=== PATIENT | female | born 1940 | race Caucasian/White ===

== ENCOUNTER 2020-06-29 09:44 | Emergency (ER) | payer OTHER ==
[~2020-06-29] VITALS: Ht 162.6 cm; Wt 55.8 kg
[2020-06-29] MEDS ORDERED: HYDROCODONE/APAP 5MG-325MG TAB PO NR (10:15)
--- NOTE | 2020-06-29 10:44 | Emergency Department Note ---
History of Present Illnes History of Present Illness Chief Complaint: Extremity Trauma/Pain History of Present Illness This is a 79 year old female PAIN, SWELLING TO LEFT SHOULDER THAT RADIATES TO ELBOW. POSITIVE PULSE, CAP REFIL <3SEC. 2 HRS AGO TRIPPED AND FELL OVER A STOOL, LANDING ON THE LEFT SHOULDER. SHE DID HIT HEAD BUT NO LOC Historian: Patient Arrival Mode: Car Additional Treatment PUBLIC HEALTH ENGINEER: NONE Supervisor Front Required: No Onset (how long ago): hour(s) Location: LEFT SHOULDER/HUMERUS Quality: PAIN Radiation: Reports non-radiation Severity: moderate Onset quality: sudden Timing of current episode: constant Progression: unchanged Chronicity: new Context: Reports trauma/injury Relieving factors: none Exacerbating factors: none Associated symptoms: Reports denies other symptoms Past Medical/Family History Physician Review I have reviewed the patient's past medical and family history. Any updates have been documented here. Past Medical History Recent Fever: No Clinical Suspicion of Infectio: No New/Unexplained Change in Ment: No Past Medical History: Hypertension, GERD Other Medical History: ANEURYSM OSTEOPOROSIS ESOPHAGEAL STRICTURE Past Surgical History: Cholecysctectomy, Appendectomy, Hysterectomy Other Surgery: PARTIAL HYSTERECTOMY RIGHT SHOULDER SURGERY HEMMROHIDECTOMY BILATERAL FEET Social History Smoking Cessation: Never Smoker Counseling Performed: No Alcohol Use: None Any Illegal Drug Use: No TB Exposure/Symptoms: No Physically hurt or threatened: No Family History Family history of heart diseas: No Other Any Pre-Existing Lines (PICC,: No Is patient up to date on immun: Yes Review of Systems Review of Systems Constitutional: Reports no symptoms EENTM: Reports no symptoms Cardiovascular: Reports no symptoms Respiratory: Reports no symptoms Gastrointestinal: Reports no symptoms Genitourinary: Reports no symptoms Musculoskeletal: Reports as per HPI Integumentary: Reports no symptoms Neurological: Reports no symptoms Psychological: Reports no symptoms Endocrine: Reports no symptoms Hematological/Lymphatic: Reports no symptoms Physical Exam Related Data Allergies: Coded Allergies: codeine (Verified Allergy, Intermediate, ITCHES, RASH, 06/29/20) Triage Vital Signs Vital Signs Date Time Temp Pulse Resp B/P (MAP) Pulse Ox O2 Delivery O2 Flow Rate FiO2 06/29/20 09:53 98.2 86 18 137/82 100 Room Air Vital signs reviewed: Yes Physical Exam CONSTITUTIONAL Constitutional: Present well-developed, Present well-nourished HENT HENT: Present normocephalic, Present atraumatic, Present oropharynx clear/moist, Present nose normal HENT L/R: Present left ext ear normal, Present right ext ear normal EYES Eyes: Reports PERRL, Reports conjunctivae normal NECK Neck: Present ROM normal, Present other (NO MIDLINE TTP, FROM WITHOUT PAIN) PULMONARY Pulmonary: Present effort normal, Present breath sounds normal CARDIOVASCULAR Cardiovascular: Present regular rhythm, Present heart sounds normal, Present capillary refill normal, Present normal rate GASTROINTESTINAL Abdominal: Present soft, Present nontender, Present bowel sounds normal GENITOURINARY Genitourinary: Present exam deferred SKIN Skin: Present warm, Present dry MUSCULOSKELETAL Musculoskeletal: Present tenderness (FROM MID-SHAFT LEFT HUMERUS TO SHOULDER WITH DECR ROM AT SHOULDER) NEUROLOGICAL Neurological: Present alert, Present oriented x 3, Present no gross motor or sensory deficits PSYCHOLOGICAL Psychological: Present mood/affect normal, Present judgement normal Results Imaging Imaging results reviewed: Yes Impressions EXAMINATION: Head and cervical spine CT without contrast. HISTORY: Status post fall, trauma, pain COMPARISON: None. TECHNIQUE: Multidetector axial images were obtained without contrast from the foramen magnum to the vertex and through the cervical spine. Dose modulation, iterative reconstruction, and/or weight based adjustment of the mA/kV was utilized to reduce the radiation dose to as low as reasonably achievable. HEAD CT FINDINGS: Skull/scalp: No lytic or blastic lesions. No fractures. Parenchyma: Normal. No mass, hemorrhage or CT evidence of acute vascular insult. Brain volume: Normal for age. Ventricles: No hydrocephalus or displacement. Arteries: No density suggestive of thrombus. Dural sinuses: No abnormal density. Extra-axial spaces: No abnormal density. Foramen magnum: No mass, Chiari malformation, or basilar invagination. Sella: No obvious mass. Paranasal/mastoid sinuses: Imaged portions unremarkable. CERVICAL SPINE CT FINDINGS: Alignment:Normal alignment and lordosis. Soft tissues: Approximately 6 mm radiopaque foreign body within the cervical esophagus may correspond to a pill. Bilateral pleural-parenchymal scarring in the lung apices. Vertebrae: Normal height and density. No acute fracture, infection or neoplasm. Degenerative changes: C2-C3: Facet arthrosis mainly on the left. No stenoses. C3-C4: Prominent facet arthrosis may be on the left. No stenoses. C4-C5: Mild uncovertebral and facet processes minimally on the left. No stenoses. C5-C6: Mild uncovertebral arthrosis without stenoses. C6-C7: Disc osteophyte complex formation and bilateral uncovertebral arthrosis mainly on the right. Moderate right and mild left foraminal stenoses. C7-T1: Normal IMPRESSION: Head CT: No acute posttraumatic intracranial abnormalities, particularly no hemorrhage. Cervical spine CT: 1. No acute fractures or dislocations. 2. Chronic degenerative changes as described. Note: Acute post traumatic spinal cord, vascular or ligamentous injury cannot adequately be assessed with CT. Signed by: Dr. Sandra Upton M.D. on 06/29/2020 11:21 AM Assessment & Plan Medical Decision Making MDM FALL, HIT HEAD TAKES ASA NO LOC, LEFT HUMERUS/SHOULDER PAIN - CT BRAIN/C-SPINE, XRAY LEFT SHOULDER/HUMERUS - R/O CEREBRAL BLEED, CERV FX, SHOULDER FX/DISLOCATION, HUMERUS FX Reassessment Reassessment SLING/SWATH, TRAMADOL, OTC TYLENOL/IBUPROFEN, F/U ORTHO PER [facility] PCP Assessment & Plan Final Impression: (1) Humerus fracture Depart Disposition: HOME, SELF-CARE Last Vital Signs Date Time Temp Pulse Resp B/P (MAP) Pulse Ox O2 Delivery O2 Flow Rate FiO2 06/29/20 09:53 98.2 86 18 137/82 100 Room Air Medications in the ED Acetaminophen/ Hydrocodone Bitart 1 ea ONCE PO ; Start 06/29/20 at 10:15; Stop 06/29/20 at 11:59 DONOVAN OLIVIA MD Jun 29, 2020 10:43
--- NOTE | 2020-06-29 11:25 | Diagnostic Imaging Report ---
EXAMINATION: Head and cervical spine CT without contrast. HISTORY: Status post fall, trauma, pain COMPARISON: None. TECHNIQUE: Multidetector axial images were obtained without contrast from the foramen magnum to the vertex and through the cervical spine. Dose modulation, iterative reconstruction, and/or weight based adjustment of the mA/kV was utilized to reduce the radiation dose to as low as reasonably achievable. HEAD CT FINDINGS: Skull/scalp: No lytic or blastic lesions. No fractures. Parenchyma: Normal. No mass, hemorrhage or CT evidence of acute vascular insult. Brain volume: Normal for age. Ventricles: No hydrocephalus or displacement. Arteries: No density suggestive of thrombus. Dural sinuses: No abnormal density. Extra-axial spaces: No abnormal density. Foramen magnum: No mass, Chiari malformation, or basilar invagination. Sella: No obvious mass. Paranasal/mastoid sinuses: Imaged portions unremarkable. CERVICAL SPINE CT FINDINGS: Alignment:Normal alignment and lordosis. Soft tissues: Approximately 6 mm radiopaque foreign body within the cervical esophagus may correspond to a pill. Bilateral pleural-parenchymal scarring in the lung apices. Vertebrae: Normal height and density. No acute fracture, infection or neoplasm. Degenerative changes: C2-C3: Facet arthrosis mainly on the left. No stenoses. C3-C4: Prominent facet arthrosis may be on the left. No stenoses. C4-C5: Mild uncovertebral and facet processes minimally on the left. No stenoses. C5-C6: Mild uncovertebral arthrosis without stenoses. C6-C7: Disc osteophyte complex formation and bilateral uncovertebral arthrosis mainly on the right. Moderate right and mild left foraminal stenoses. C7-T1: Normal IMPRESSION: Head CT: No acute posttraumatic intracranial abnormalities, particularly no hemorrhage. Cervical spine CT: 1. No acute fractures or dislocations. 2. Chronic degenerative changes as described. Note: Acute post traumatic spinal cord, vascular or ligamentous injury cannot adequately be assessed with CT. Signed by: Dr. Sandra Upton M.D. on 06/29/2020 11:21 AM
--- NOTE | 2020-06-29 11:31 | Diagnostic Imaging Report ---
X-ray 2 views of the humerus. 3 views of the shoulder. HISTORY: Shoulder pain after recent fall. COMPARISON: None available. FINDINGS: Bone/joints: There is a comminuted and mildly displaced fracture of the left humeral head/neck junction with a large greater tuberosity fragment. No evidence of glenohumeral acromioclavicular dislocation. Soft tissues: There is mild regional soft tissue edema. Others: The partially imaged left lung is clear. IMPRESSION: Comminuted and mildly displaced fracture of the left humeral head/neck junction with a large greater tuberosity fragment Signed by: Jayleen Zhang MD on 06/29/2020 11:27 AM
[2020-06-29 11:57] VITALS: BP 127/69
== END 2020-06-29 12:01 | disposition home or self-care (01) ==
LOC: ER 10:08
DX: M25.512 Pain in left shoulder (principal); S42.292A Other displaced fracture of upper end of left humerus, initial encounter for closed fracture; W01.0XXA Fall on same level from slipping, tripping and stumbling without subsequent striking against object, initial encounter; Y93.01 Activity, walking, marching and hiking; I10 Essential (primary) hypertension; K21.9 Gastro-esophageal reflux disease without esophagitis
CPT/HCPCS: 70450; 72125; 99284